=== PATIENT | male | born 1985 | race Caucasian/White ===

== ENCOUNTER 2023-02-07 21:19 | Emergency (ER) | payer SELFPAY ==
[~2023-02-07] VITALS: Ht 167.6 cm; Wt 70.0 kg
[2023-02-07 21:23] VITALS: BP 132/70; PULSE 65; RESP 16; TEMP 98.5; O2SAT 98
== END 2023-02-07 21:44 ==
LOC: ER 21:19
DX: F10.129 Alcohol abuse with intoxication, unspecified (principal); Y90.9 Presence of alcohol in blood, level not specified
CPT/HCPCS: 99283